=== PATIENT | female | born 1955 | race Caucasian/White ===

== ENCOUNTER 2019-02-20 13:28 | Emergency (ER) | payer BC ==
[~2019-02-20] VITALS: Ht 162.6 cm; Wt 85.0 kg
--- NOTE | 2019-02-20 14:05 | NUR ---
pt was talking to me normally and suddenly c/o dizziness near faintness,pale ,sob,diaphoretic ,pt alert oriented obeys command .called nurse garcia for help to move the pt to er.
--- NOTE | 2019-02-20 14:10 | NUR ---
pt sitting on bed with elbow elevated .pt started feeling dizzy sob and generalized numbness called nurse garcia for help move the pt to main er for further evaluation.pa mamadou aware.pt pain level 9/10 for elbow injury.
--- NOTE | 2019-02-20 14:10 | NUR ---
SPOKE TO PROVIDER ON PT STATUS OF BEING 0N COUMADIN AND PT FALL. PT HAD NO LOC AND DENIES HITTING HER HEAD. PT STATUS REMAINS SAME PER PROVIDER.
--- NOTE | 2019-02-20 14:25 | NUR ---
SPOKE WITH PROVIDER TALON JACKSON AND UPDATED ON PT DIZZINESS AND DIAPHRETIC SPELL. ACS PROTOCOL BEING ORDERED, PT STATUS BEING CHANGED TO TRAUMA ALERT LEVEL 3 AND PROVIDER REPORTS HE WILL BE GOING TO ASCESS PT SHORTLY.
--- NOTE | 2019-02-20 14:28 | NUR ---
PT PLACED ON PORTABLE CUSTOMS MANAGER, VS OBTAINED WELL BLOOD GLUCOSE. CERAMICS INSTRUCTOR AWARE OF PT STATUS AND GETTING BED ARRANGED.
--- NOTE | 2019-02-20 14:38 | NUR ---
PT BEING TAKEN TO ROOM 16.
[2019-02-20 15:01] LABS: BASOPHILS # (AUTO) 0.1 X10'3 (0-0.2); BASOPHILS % (AUTO) 0.6 % (0-1); EOSINOPHILS # (AUTO) 0.2 X10'3 (0-0.9); EOSINOPHILS % (AUTO) 1.4 % (0-6); HEMOGLOBIN 14.3 g/dl (12.0-16.0); LYMPHOCYTES # (AUTO) 2.5 X10'3 (1.1-4.8); LYMPHOCYTES % (AUTO) 22.6 % (21-51); MEAN CORPUSCULAR HEMOGLOBIN 32.3 PG (27.0-31.0); MEAN PLATELET VOLUME 8.2 FL (7.4-10.4); MONOCYTES # (AUTO) 0.6 X10'3 (0-0.9); MONOCYTES % (AUTO) 5.4 % (2-12); NEUTROPHILS # (AUTO) 7.7 X10'3 (1.8-7.7); PLATELET COUNT 296 X10'3 (140-440); RED BLOOD COUNT 4.42 X10'6 (4.20-5.60); RED CELL DISTRIBUTION WIDTH 12.5 % (11.5-14.5)
[2019-02-20 15:12] LABS: PARTIAL THROMBOPLASTIN TIME 24 SECONDS (22-32)
[2019-02-20 15:15] LABS: ALANINE AMINOTRANSFERASE 30 U/L (12-78); ALBUMIN 3.8 G/DL (3.4-5.0); ALBUMIN/GLOBULIN RATIO 1.2 (1.1-1.5); ALKALINE PHOSPHATASE 120 IU/L (46-116); ANION GAP 9 (8-16); ASPARTATE AMINO TRANSFERASE 15 U/L (10-37); BILIRUBIN,TOTAL 0.3 MG/DL (0.1-1.0); BLOOD UREA NITROGEN 27 MG/DL (7-18); BUN/CREATININE RATIO 20.9 (6.6-38.0); CALCIUM 9.2 MG/DL (8.5-10.1); CHLORIDE 107 MMOL/L (99-107); CREATININE 1.29 MG/DL (0.40-0.90); GLUCOSE 110 MG/DL (70-104); POTASSIUM 4.2 MMOL/L (3.5-5.1); SODIUM 142 MMOL/L (135-145); TOTAL CARBON DIOXIDE 26.1 MMOL/L (24-32); eGFR 42 ML/MIN
[2019-02-20 15:32] VITALS: BP 111/60
== END 2019-02-20 16:53 | disposition home or self-care (01) ==
LOC: ER 13:30
DX: S50.01XA Contusion of right elbow, initial encounter (principal); S50.11XA Contusion of right forearm, initial encounter; S60.221A Contusion of right hand, initial encounter; R42 Dizziness and giddiness; Z88.2 Allergy status to sulfonamides; V19.88XA Pedal cyclist (driver) (passenger) injured in other specified transport accidents, initial encounter; Y93.89 Activity, other specified; Y92.89 Other specified places as the place of occurrence of the external cause; Y99.8 Other external cause status
CPT/HCPCS: 36415; 71045; 73090; 80053; 82948; 84484; 85025; 85610; 85730; 93005; 99284

== ENCOUNTER 2019-02-27 16:08 | Emergency (ER) | payer BC ==
[~2019-02-27] VITALS: Ht 162.6 cm; Wt 85.3 kg
[2019-02-27] MEDS ORDERED: TRAM50TA2 PO (17:42)
[2019-02-27] MEDS ORDERED: HYDROcodone/acetaminophen 10/325mg tab PO ONE (18:25)
[2019-02-27 18:39] VITALS: BP 136/93
== END 2019-02-27 18:40 | disposition home or self-care (01) ==
LOC: ER 16:08
DX: S50.01XA Contusion of right elbow, initial encounter (principal); M25.531 Pain in right wrist; Z86.73 Personal history of transient ischemic attack (TIA), and cerebral infarction without residual deficits; Z88.2 Allergy status to sulfonamides; W18.49XA Other slipping, tripping and stumbling without falling, initial encounter; Y93.89 Activity, other specified; Y92.89 Other specified places as the place of occurrence of the external cause; Y99.9 Unspecified external cause status
CPT/HCPCS: 29105; 29125; 73080; 73110; 99284

== ENCOUNTER 2019-03-18 14:41 | Outpatient (CLI) | payer BC ==
[~2019-03-18 14:41] MED LIST: TRAM50TA2 PO
== END 2019-03-18 16:53 | disposition home or self-care (01) ==
LOC: ORTHO 14:41
PROVIDERS: ATTEND Orthopaedic Surgery
DX: M85.88 Other specified disorders of bone density and structure, other site (principal); M25.421 Effusion, right elbow
CPT/HCPCS: 73080; 73110